=== PATIENT | female | born 1970 | race Caucasian/White ===

== ENCOUNTER 2019-06-25 06:55 | Emergency (ER) | payer BC, OTHER ==
[2019-06-25] MEDS ORDERED: KETOROLAC TROMETHAMINE 60 MG/2 ML SDV IM ONE (09:12)
[2019-06-25] MEDS ORDERED: CYCLOBENZAPRINE HCL 10 MG TABLET PO ONE (09:13)
--- NOTE | 2019-06-25 09:44 | ER Document Report ---
ED General - General Chief Complaint: Neck Pain >24hrs old Stated Complaint: LEFT SHOULDER PAIN Time Seen by Provider: 06/25/19 08:56 Primary Care Provider: DINAH CASTELLANOS MD [Primary Care Provider] - Follow up as needed Notes: 49-year-old female presents for left upper back/neck pain for 1 week. Patient states she has taken ibuprofen, Soma, used Epson salt, ice/heat without any relief. Patient denies any injuries or fever. Patient states she had some nausea/vomiting for 24 hours 3 days ago but denies any currently. Patient denies any difficulty with urinating/defecating or groin numbness. Patient d enies any abdominal pain, chest pain, shortness of breath. TRAVEL OUTSIDE OF THE [place] IN LAST 30 DAYS: No - Related Data Allergies/Adverse Reactions: clindamycin Allergy (Verified 06/25/19 07:35) Penicillins Allergy (Verified 06/25/19 07:35) Past Medical History - Social History Smoking Status: Current Every Day Smoker Family History: None Patient has suicidal ideation: No Patient has homicidal ideation: No Pulmonary Medical History: Reports: Hx Asthma, Hx COPD Past Surgical History: Reports: Hx Tubal Ligation Review of Systems - Review of Systems Notes: Constitutional: Negative for fever. HENT: Negative for sore throat. Eyes: Negative for visual changes. Cardiovascular: Negative for chest pain. Respiratory: Negative for shortness of breath. Gastrointestinal: Negative for abdominal pain, vomiting or diarrhea. Genitourinary: Negative for dysuria. Musculoskeletal: Positive for back pain. Skin: Negative for rash. Neurological: Negative for headaches, weakness or numbness. 10 point ROS negative except as marked above and in HPI. Physical Exam - Vital signs Vitals: Temp Pulse Resp BP Pulse Ox 98.6 F 82 16 134/88 H 96 06/25/19 07:13 06/25/19 07:13 06/25/19 07:13 06/25/19 07:13 06/25/19 07:13 - Notes Notes: GENERAL: Well-appearing, well-nourished and in no acute distress. HEAD: Atraumatic, normocephalic. EYES: Extraocular movements intact, sclera anicteric, conjunctiva are normal. NECK: Normal range of motion, supple without lymphadenopathy or JVD. No signs of meningsmus. MUSCULOSKELETAL: Left upper trapezius muscle spasm. No spinal tenderness. Full range of motion of neck. EXTREMITIES: Normal range of motion, no pitting or edema. No clubbing or cyanosis. NEUROLOGICAL: Cranial nerves II through XII grossly intact. Normal speech, normal gait. PSYCH: Normal mood, normal affect. SKIN: Warm, Dry, normal turgor, no rashes or lesions noted. Course - Re-evaluation Re-evalutation: 06/25/19 49-year-old female presents with left upper back/neck pain for 1 week. Patient denies any fever. Patient is nontoxic, well-appearing. Afebrile. Non toxic nontachycardic. No spinal tenderness. Muscle spasm noted to left upper trapezius. Patient is able to move neck without difficulty. Patient given Toradol and Flexeril and will reassess.` 06/25/19 10:18 RN reports pt is still having pain. Minimally relieved with toradol/flexeril. Valium ordered. 06/25/19 12:08 Pt feels better after Valium. Will discharge with prescription for Valium and ibuprofen. Pt given sedation warning with Valium. Pt given close follow up with PCP. Pt instructed on heat/ice. Return precautions given. Pt voices understanding and agrees with plan of care. - Vital Signs Vital signs: Temp Pulse Resp BP Pulse Ox 98.6 F 82 16 134/88 H 96 06/25/19 07:13 06/25/19 07:13 06/25/19 07:13 06/25/19 07:13 06/25/19 07:13 Discharge - Discharge Clinical Impression: Muscle spasm, Muscle strain Condition: Stable Disposition: HOME, SELF-CARE Instructions: Muscle Relaxers ([facility]), Muscle Strain ([facility]) Additional Instructions: Your exam is consistent with musculoskeletal pain most likely muscle spasm/muscle strain. Please take Valium as prescribed. Do not drink or drive while taking as it may make you drowsy. Please take ibuprofen as prescribed. Please alternate heat and ice as discussed. Please follow-up with your primary care doctor in 3 to 5 days. Return to ER for any worsening symptoms, including worsening pain, inability to move your left arm, weakness, chest pain, shortness of breath, fever, or any other symptoms that are concerning to you. Prescriptions: Ibuprofen [Motrin 800 mg Tablet] 800 mg PO Q8H PRN #30 tab PRN Reason: Diazepam [Valium 5 mg Tablet] 5 mg PO QIDP PRN #15 tablet PRN Reason: Forms: Return to Work Referrals: DINAH CASTELLANOS MD [Primary Care Provider] - Follow up in 3-5 days
[2019-06-25] MEDS ORDERED: DIAZEPAM 5 MG TABLET PO ONE (10:19)
[2019-06-25 12:21] VITALS: BP 142/86
== END 2019-06-25 12:21 | disposition home or self-care (01) ==
LOC: ER 06:55
DX: T14.8XXA Other injury of unspecified body region, initial encounter (principal); X58.XXXA Exposure to other specified factors, initial encounter; M62.830 Muscle spasm of back; M54.2 Cervicalgia; M54.9 Dorsalgia, unspecified; F17.200 Nicotine dependence, unspecified, uncomplicated; J44.9 Chronic obstructive pulmonary disease, unspecified; Z88.1 Allergy status to other antibiotic agents; Z88.0 Allergy status to penicillin
CPT/HCPCS: 99283; 96372; J1885

== ENCOUNTER 2020-01-31 12:06 | Emergency (ER) | payer BC ==
--- NOTE | 2020-01-31 13:25 | RADIOLOGY REPORT (SQ) ---
EXAM DESCRIPTION: CHEST SINGLE VIEW IMAGES COMPLETED DATE/TIME: 01/31/2020 12:47 pm REASON FOR STUDY: sob COMPARISON: None. NUMBER OF VIEWS: One view. TECHNIQUE: Single frontal radiographic view of the chest acquired. LIMITATIONS: None. FINDINGS: LUNGS AND PLEURA: Mildly hyperexpanded and hyperlucent without focal pulmonary consolidati on, pleural effusion, or pneumothorax. MEDIASTINUM AND HILAR STRUCTURES: No masses. Contour normal. HEART AND VASCULAR STRUCTURES: Heart normal in size. Normal vasculature. BONES: No acute findings. Remote healed left 6th rib fracture. HARDWARE: None in the chest. OTHER: No other significant finding. IMPRESSION: Emphysematous changes without evidence of acute pulmonary process. TECHNICAL DOCUMENTATION: JOB ID: [id number] [employer]- All Rights Reserved Reading location - IP/workstation name: [email or web address]
[2020-01-31 14:07] LABS: ABSOLUTE BASOPHILS # (AUTO) 0.1 10^3/uL (0.0-0.2); ABSOLUTE EOSINOPHILS # (AUTO) 0.4 10^3/uL (0.0-0.6); ABSOLUTE LYMPHOCYTES (AUTO) 0.7 10^3/uL (0.5-4.7); ABSOLUTE MONOCYTES (AUTO) 0.4 10^3/uL (0.1-1.4); ABSOLUTE NEUT (AUTO) 9.5 10^3/uL (1.7-8.2); BASOPHILS % (AUTO) 0.6 % (0-2); EOSINOPHILS % (AUTO) 3.3 % (0-6); HEMATOCRIT 38.3 % (36.0-47.0); HEMOGLOBIN 13.2 g/dL (12.0-15.5); LYMPHOCYTES % (AUTO) 6.5 % (13-45); MEAN CORPUSCULAR HEMOGLOBIN 27.6 pg (27.0-33.4); MEAN CORPUSCULAR HGB CONC 34.4 g/dL (32.0-36.0); MEAN CORPUSCULAR VOLUME 80 fl (80-97); MONOCYTES % (AUTO) 3.2 % (3-13); PLATELET COUNT 564 10^3/uL (150-450); RED BLOOD COUNT 4.77 10^6/uL (3.72-5.28); RED CELL DISTRIBUTION WIDTH 16.2 % (11.5-14.0); SEGMENTED NEUTROPHILS % (AUTO) 86.4 % (42-78); TOTAL CELLS COUNTED % (AUTO) 100 %; WHITE BLOOD COUNT 10.9 10^3/uL (4.0-10.5)
[2020-01-31 14:33] LABS: ALKALINE PHOSPHATASE 72 U/L (38-126); ANION GAP 8 (5-19); ASPARTATE AMINO TRANSFERASE 16 U/L (14-36); BILIRUBIN,TOTAL 0.4 mg/dL (0.2-1.3); BLOOD UREA NITROGEN 19 mg/dL (7-20); CALCIUM 9.5 mg/dL (8.4-10.2); CARBON DIOXIDE 30 mmol/L (22-30); CHLORIDE 98 mmol/L (98-107); GLUCOSE 161 mg/dL (75-110); POTASSIUM 4.3 mmol/L (3.6-5.0); TOTAL PROTEIN 6.6 g/dL (6.3-8.2)
[2020-01-31] MEDS ORDERED: METHYLPREDNISOLONE INJ 125 MG/2 ML SDV IV ONE (14:38)
[2020-01-31] MEDS ORDERED: KETOROLAC TROMETHAMINE INJ/PF 30 MG/1 ML SDV IV ONE (15:04)
[2020-01-31] MEDS ORDERED: KETOROLAC TROMETHAMINE INJ/PF 30 MG/1 ML SDV IM ONE (15:10)
--- NOTE | 2020-01-31 15:12 | ER Document Report ---
Entered by ESTRADA CURTIS SCRIBE 01/31/20 1503 Acting as scribe for:LUCIA TORRES MD ED General - General Chief Complaint: Shortness Of Breath Stated Complaint: DIFFICULTY BREATHING Time Seen by Provider: 01/31/20 12:43 Primary Care Provider: DINAH CASTELLANOS MD [Primary Care Provider] - Follow up as needed Information source: Patient Notes: This 49 year old female patient presents to the emergency department today with complaints of asthma exacerbation. Patient reports a history of asthma and COPD. 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 Patient states she has seen her PCP and was prescribed prednisone. Patient states she was given a x10 day course of prednisone and wants a longer course because she is used to tapering off over a longer period of time. Denies covid exposure. TRAVEL OUTSIDE OF THE [place] IN LAST 30 DAYS: No - Related Data Allergies/Adverse Reactions: bee venom protein (honey bee) Allergy (Verified 01/31/20 12:28) clindamycin Allergy (Verified 01/31/20 12:28) Penicillins Allergy (Verified 01/31/20 12:28) Past Medical History - General Information source: Patient - Social History Smoking Status: Current Every Day Smoker Cigarette use (# per day): Yes Frequency of alcohol use: None Drug Abuse: None Family History: None Patient has homicidal ideation: No Pulmonary Medical History: Reports: Hx Asthma, Hx COPD Past Surgical History: Reports: Hx Tubal Ligation Review of Systems - Review of Systems Constitutional: No symptoms reported EENT: No symptoms reported Cardiovascular: No symptoms reported Respiratory: See HPI, Other - Asthma exacerbation Gastrointestinal: No symptoms reported Genitourinary: No symptoms reported Female Genitourinary: No symptoms reported Musculoskeletal: No symptoms reported Skin: No symptoms reported Hematologic/Lymphatic: No symptoms reported Neurological/Psychological: No symptoms reported -: Yes All other systems reviewed and negative Physical Exam - Vital signs Vitals: Temp Pulse Resp BP Pulse Ox 98.4 F 93 20 131/84 H 97 01/31/20 12:20 01/31/20 12:20 01/31/20 12:20 01/31/20 12:20 01/31/20 12:20 - General General appearance: Appears well, Alert - HEENT Head: Normocephalic, Atraumatic Eyes: Normal Pupils: PERRL - Respiratory Respiratory status: No respiratory distress. No: Tachypnea Chest status: Nontender Chest palpation: Normal Notes: Increased AP diameter of chest. Diffuse expiratory wheeze. - Cardiovascular Rhythm: Regular Heart sounds: Normal auscultation, S1 appreciated, S2 appreciated Murmur: No - Abdominal Inspection: Normal, Other - Soft Distension: No distension Bowel sounds: Normal Tenderness: Nontender - Extremities General upper extremity: Normal inspection. No: Edema General lower extremity: Normal inspection. No: Edema - Neurological Neuro grossly intact: Yes Cognition: Normal Orientation: AAOx4 Speech: Normal - Psychological Associated symptoms: Normal affect, Normal mood - Skin Skin Temperature: Warm Skin Moisture: Dry Skin Color: Normal Course - Re-evaluation Re-evalutation: 01/31/20 17:15 Patient in no respiratory distress. Patient does have some expiratory wheezing which was treated with IV Solu-Medrol. Patient due to her cough had developed some anterior chest wall pain therefore I IEM ketorolac 30mg was given for that pain. - Vital Signs Vital signs: Temp Pulse Resp BP Pulse Ox 98.0 F 88 16 130/79 H 99 01/31/20 15:37 01/31/20 15:37 01/31/20 15:37 01/31/20 15:37 01/31/20 15:37 01/31/20 17:16 Vital signs stable pulse ox 99% on room air afebrile pulse 88 and blood pressure 130 over over 80. - Laboratory Result Diagrams: 01/31/20 14:00 01/31/20 14:00 Laboratory results interpreted by me: 01/31/20 01/31/20 14:00 14:00 WBC 10.9 H RDW 16.2 H Plt Count 564 H Lymph % (Auto) 6.5 L Absolute Neuts (auto) 9.5 H Seg Neutrophils % 86.4 H Sodium 135.8 L Glucose 161 H 01/31/20 17:16 Labs essentially within normal limits not showing any signs of any acute distress. Blood sugar 161 sodium 136 white count 10.9 platelet count elevated at 564 is abnormal. - Diagnostic Test Radiology reviewed: Image reviewed, Reports reviewed Radiology results interpreted by me: 01/31/20 17:17 Chest x-ray shows emphysematous changes otherwise no acute process no infiltrate noted Discharge - Discharge Clinical Impression: Bronchospasm, acute, Asthma exacerbation, COPD (chronic obstructive pulmonary disease) Condition: Stable Disposition: HOME, SELF-CARE Additional Instructions: Asthma You have been diagnosed as having asthma. This is a condition where there is episodic tightness in the bronchial tubes. Allergies, infections, and polluted or cold air may be contributing factors. Emergency treatment of a severe asthma attack may include adrenaline shots, or bronchodilator aerosol. You may feel lightheaded, have a decreased exercise tolerance and a rapid pulse for an hour or two. Rest and get plenty of fluids. Home treatment of asthma requires bronchodilator drugs. These can be administered by injection, inhalation, or by mouth. Antibiotics and corticosteroids may be required for some patients. You should avoid chemical fumes, dusts, pollens, and exercising in very cold or dry air. If you smoke, stop!! If you develop a fever, increased wheezing, chest pain, or severe shortness of breath, you should contact the doctor immediately Prescriptions: Prednisone [Deltasone 20 mg Tablet] 2 tab PO DAILY 5 Days #10 tablet Forms: Return to Work Referrals: DINAH CASTELLANOS MD [Primary Care Provider] - Follow up as needed I personally performed the services described in the documentation, reviewed and edited the documentation which was dictated to the scribe in my presence, and it accurately records my words and actions.
[2020-01-31 15:39] VITALS: BP 130/79
== END 2020-01-31 15:37 | disposition home or self-care (01) ==
LOC: ER 12:06
DX: J98.01 Acute bronchospasm (principal); J44.9 Chronic obstructive pulmonary disease, unspecified; R06.02 Shortness of breath; Z88.0 Allergy status to penicillin; Z88.1 Allergy status to other antibiotic agents; F17.210 Nicotine dependence, cigarettes, uncomplicated
CPT/HCPCS: 99285; 96372; 96374; 36415; 85025; 80053; 71045; J2930; J1885

== ENCOUNTER 2020-04-14 14:06 | Emergency (ER) | payer BC ==
[2020-04-14 14:11] VITALS: BP 144/93
== END 2020-04-14 14:38 | disposition left against medical advice (07) ==
LOC: ER 14:06
DX: Z53.21 Procedure and treatment not carried out due to patient leaving prior to being seen by health care provider (principal)